=== PATIENT | female | born 1960 | race Caucasian/White ===

== ENCOUNTER 2024-04-23 15:05 | Emergency (ER) | payer BC ==
[2024-04-23] MEDS ORDERED: Lidocaine Viscous Sol 2% 15 ml UD Cup ONE (16:04)
[2024-04-23] MEDS ORDERED: Mag-Al 1200 mg/1200 mg/30 ML UDCUP ONE (16:04)
[2024-04-23] MEDS ORDERED: Aspirin Chewable 81 MG TAB ONE (16:04)
[2024-04-23 16:09] LABS: #Lymphocytes 1.1 thou/uL (1.20-3.40); #Monocytes 0.4 thou/uL (0.11-0.59); #Neutrophils 6.9 thou/uL (1.40-6.50); %Basophils 0.5 % (0.0-1.0); %Eosinophils 0.4 % (0.0-10.0); %Lymphocytes 12.6 % (21.0-51.0); %Monocytes 4.4 % (0.0-10.0); %Neutrophils 82.1 % (42.0-75.0); Hematocrit 42.8 % (36.0-47.0); Hemoglobin 13.9 g/dL (12.0-16.0); Mean Corpuscular HGB CONC 32.6 g/dL (32.0-36.0); Mean Corpuscular Hemoglobin 29.7 pg (27.0-31.0); Mean Corpuscular Volume 91.1 fl (78.0-98.0); Mean Platelet Volume 6.9 fL (7.4-10.4); Platelet Count 322 10x3/uL (130-400); White Blood Cell (WBC) Count 8.5 10x3/uL (4.8-10.8)
[2024-04-23 16:25] LABS: ALT (SGPT) 17 U/L (8-55); AST (SGOT) 19 U/L (5-34); Albumin 4.1 g/dL (3.4-4.8); Alkaline Phosphatase 97 U/L (40-110); Anion Gap 17 mmol/L (10-20); BUN (Urea Nitrogen) 9 mg/dL (9.8-20.1); Bilirubin, Total 0.4 mg/dL (0.2-1.2); Calc. Creatinine Clearance 0 mL/min (70-130); Calcium 9.7 mg/dL (7.8-10.44); Carbon Dioxide 21 mmol/L (23-31); Chloride 104 mmol/L (98-107); Estimated GFR 83; Globulin 3.2 g/dL (2.4-3.5); Glucose 118 mg/dL (80-115); Lipase 15 U/L (8-78); Potassium 3.7 mmol/L (3.5-5.1); Protein, Total 7.3 g/dL (5.8-8.1); Sodium 138 mmol/L (136-145)
[2024-04-23 16:36] LABS: Troponin I Less than 0.010 ng/mL (< 0.028)
== END 2024-04-23 17:17 | disposition home or self-care (01) ==
LOC: MADERS 15:05
DX: I10 Essential (primary) hypertension (principal); F17.210 Nicotine dependence, cigarettes, uncomplicated; Z79.82 Long term (current) use of aspirin; Z79.899 Other long term (current) drug therapy
CPT/HCPCS: 71046; 80053; 83690; 84484; 85025; 85379; 93005; 94760

== ENCOUNTER 2024-07-10 21:39 | Emergency (ER) | payer BC ==
[2024-07-10] MEDS ORDERED: Ipratropium/Albuterol 3 ML NEB ONE (22:14)
[2024-07-10] MEDS ORDERED: methylPREDNISolone Sod Succ/PF 125 MG/2 ML VIAL ONE (22:14)
[2024-07-10 22:26] LABS: Band 2 % (5-11); Hematocrit 44.5 % (36.0-47.0); Hemoglobin 14.6 g/dL (12.0-16.0); Lymphocytes 13 % (21-51); MDiff Complete? YES; Mean Corpuscular HGB CONC 32.8 g/dL (32.0-36.0); Mean Corpuscular Hemoglobin 29.8 pg (27.0-31.0); Mean Corpuscular Volume 91.1 fl (78.0-98.0); Mean Platelet Volume 7.3 fL (7.4-10.4); Monocytes 5 % (0-10); Neutrophil 80 % (42-75); Platelet Count 286 10x3/uL (130-400); RBC Distribution Width 12.6 % (11.5-14.5); Red Blood Cell (RBC) Count 4.88 mill/uL (4.20-5.40); White Blood Cell (WBC) Count 9.9 10x3/uL (4.8-10.8)
[2024-07-10] MEDS ORDERED: Aspirin 325 MG TAB ONE (22:29)
[2024-07-10] MEDS ORDERED: Nitroglycerin 0.4 MG TAB 1 EACH ONE (22:29)
[2024-07-10 22:40] LABS: ALT (SGPT) 10 U/L (Less than 34); AST (SGOT) 16 U/L (11-34); Albumin 4.3 g/dL (3.1-4.5); Alkaline Phosphatase 107 U/L (40-110); Anion Gap 18 mmol/L (10-20); BUN (Urea Nitrogen) 9 mg/dL (9.8-20.1); Bilirubin, Total 0.4 mg/dL (0.3-1.2); Calc. Creatinine Clearance 0 mL/min (70-130); Calcium 9.8 mg/dL (7.8-10.44); Carbon Dioxide 21 mmol/L (23-31); Chloride 104 mmol/L (98-107); Estimated GFR 89; Globulin 3.5 g/dL (2.4-3.5); Glucose 116 mg/dL (80-115); Potassium 3.7 mmol/L (3.5-5.1); Protein, Total 7.8 g/dL (5.8-8.1); Sodium 139 mmol/L (136-145); Troponin I Less than 0.010 ng/mL (< 0.028)
[2024-07-10] MEDS ORDERED: Albuterol 2.5 MG (0.5 mL) NEB ONE (23:14)
[2024-07-10] MEDS ORDERED: Ipratropium Bromide 2.5 ml Neb ONE (23:14)
[2024-07-11] MEDS ORDERED: Ipratropium/Albuterol 3 ML NEB ONE (00:46)
[2024-07-11 01:30] LABS: Troponin I Less than 0.010 ng/mL (< 0.028)
== END 2024-07-11 01:46 | disposition home or self-care (01) ==
LOC: MADERS 21:39
DX: J44.1 Chronic obstructive pulmonary disease with (acute) exacerbation (principal); J90 Pleural effusion, not elsewhere classified; I10 Essential (primary) hypertension; F17.210 Nicotine dependence, cigarettes, uncomplicated; Z79.82 Long term (current) use of aspirin; Z79.899 Other long term (current) drug therapy
CPT/HCPCS: 36415; 71045; 80053; 83880; 84484; 85025; 93005; 94760; 96374; J2919; J7611; J7620; J7644